=== PATIENT | female | born 1945 | race Caucasian/White ===

== ENCOUNTER 2017-02-09 08:17 | Day surgery (SDC) | payer MEDICARE, BC ==
[~2017-02-09 08:17] MED LIST: PROPOFOL INJ 200 MG/20 ML VIAL IV ONE
[2017-02-09 09:44] VITALS: BP 133/60
--- NOTE | 2017-02-09 13:46 | Operative Report ---
Operative Report DATE OF SURGERY: 02/09/17 Operative Report: The risks, benefits and alternatives of the procedure are explained to the patient in detail and informed consent is obtained. The patient is taken to the EU suite and placed in the left lateral decubital position. Time out is called and Propofol sedation is administered. A rectal exam is done with did not show any masses, or fissures. An Olympus videoscope is inserted and guided all the way to the cecum. The cecum is identified by the usual anatomical landmarks of the ileocecal valve and the appendiceal orifice. Photodocumentation is obtained, Prep is good The scope is then sequentially pulled back via the various segments of the colon including the ascending colon, hepatic flexure, transverse colon, splenic flexure, descending colon and finally into the rectosigmoid region. Retroflexion is done PREOPERATIVE DIAGNOSIS: colorectal cancer screening POSTOPERATIVE DIAGNOSIS: normal screening colonoscopy. OPERATION: diagnostic colonoscopy SURGEON: ARETHA MCLEOD ANESTHESIA: LMAC TISSUE REMOVED OR ALTERED: none COMPLICATIONS: none ESTIMATED BLOOD LOSS: none INTRAOPERATIVE FINDINGS: normal findings, no AVM, masses or polyps noted PROCEDURE: The patient tolerated the procedure well no post procedure complications are noted patient is discharged in good condition Discharge date 02/09/17 Discharge diet: regular Discharge activity: regular 10 year surveillance patient to call if needed she is instructed to call the office or go to the ED if needed
== END 2017-02-09 09:50 | disposition home or self-care (01) ==
LOC: END 08:17
PROVIDERS: ATTEND Internal Medicine Gastroenterology
PROC: 0DJD8ZZ Inspection of Lower Intestinal Tract, Via Natural or Artificial Opening Endoscopic (ICD-10-PCS; principal; 2017-02-09 10:00)
DX: Z12.11 Encounter for screening for malignant neoplasm of colon (principal); E78.00 Pure hypercholesterolemia, unspecified; Z87.891 Personal history of nicotine dependence; Z79.899 Other long term (current) drug therapy
CPT/HCPCS: G0121; J2704; 45378; 810